=== PATIENT | female | born 1970 | race Caucasian/White ===

== ENCOUNTER → 2017-04-15 | Outpatient (CLI) | payer OTHER, SELFPAY ==
--- NOTE | 2017-04-17 09:50 | DEXA ---
AP SPINE L1 - L4 1.011 -1.5 -1.4 LT FEMUR TOTAL 0.910 -0.8 -0.5 RT FEMUR TOTAL 0.906 -0.8 -0.5 TOTAL BODY TOTAL OTHER DUAL FEMUR FRAX* ASSESSMENT Risk factors: Not done. 10 year probability of fracture Major osteoporotic fracture % Hip fracture % COMMENTS: There is low bone density of the spine and hips. The decreased density of the spine does represent a significant change. The decreased density of the left hip does represent a significant change. The decreased density of the right hip does represent a significant change. The density of the spine has decreased 5.0% since the initial exam on 2005. The spine density has decreased 7.2% since the most recent exam on 12/03/2010. The density of the left hip has decreased 18.0% since the initial exam on 2005. The density of the left hip has decreased 13.9% since the most recent exam on . The density of the right hip has decreased 16.8% since the initial exam on 04/30. The density of the right hip has decreased 8.8% since the most recent exam on . FOLLOW-UP: Recommendation for the next bone density exam: 2 years. YINA
== END ==
LOC: M WHC 15:07
PROVIDERS: ATTEND Obstetrics & Gynecology
DX: E89.40 Asymptomatic postprocedural ovarian failure (principal); M85.89 Other specified disorders of bone density and structure, multiple sites

== ENCOUNTER → 2019-04-01 | Outpatient (REF) | payer BC ==
[2019-04-01 17:53] LABS: IRON (FE) 34 UG/DL (50-170)
[2019-04-01 18:05] LABS: VITAMIN B12 LEVEL 409 PG/ML (247-911)
== END ==
LOC: M LAB REF 17:17
PROVIDERS: ATTEND Nurse Practitioner Adult Health
DX: Z98.84 Bariatric surgery status (principal); D64.9 Anemia, unspecified

== ENCOUNTER → 2020-04-04 | Outpatient (REF) | payer BC ==
[2020-05-19 17:38] LABS: IRON (FE) 35 UG/DL (50-170); VITAMIN B12 LEVEL 317 PG/ML (247-911)
== END ==
LOC: M LAB REF 09:43
PROVIDERS: ATTEND Nurse Practitioner Adult Health
DX: D50.9 Iron deficiency anemia, unspecified (principal)

== ENCOUNTER → 2020-07-19 | Outpatient (CLI) | payer BC ==
[~2020-07-19] MED LIST: MULTCAP PO; OMEP10CA78 PO
[2020-07-19 16:41] LABS: HEMATOCRIT 36.1 % (36.0-47.0); HEMOGLOBIN 11.6 g/dl (12.0-15.5); MEAN CORPUSCULAR HEMOGLOBIN 26.3 pg (27.0-33.0); MEAN CORPUSCULAR HGB CONC 32.1 g/dl (32.0-36.5); MEAN CORPUSCULAR VOLUME 81.9 fl (80.0-96.0); PLATELET COUNT, AUTOMATED 202 10^3/uL (150-450); RED BLOOD COUNT 4.41 10^6/uL (4.00-5.40)
[2020-07-19 17:28] LABS: PERCENT SATURATION 14.4 % (13.2-45.0)
== END ==
LOC: M LAB 16:06
PROVIDERS: ATTEND Physician Assistant Medical
DX: D64.9 Anemia, unspecified (principal)

== ENCOUNTER → 2020-07-29 | Outpatient (CLI) | payer BC | LOC: M LABSMTC 09:23 | PROVIDERS: ATTEND Anesthesiology | DX: Z01.812 Encounter for preprocedural laboratory examination (principal); Z20.828 Contact with and (suspected) exposure to other viral communicable diseases ==

== ENCOUNTER 2020-08-03 10:58 | Day surgery (SDC) | payer BC ==
[~2020-08-03] VITALS: Ht 160 cm; Wt 83.0 kg
[~2020-08-03 10:58] MED LIST changes: +NS 1,000 ML IV ONE
[2020-08-03] MEDS ORDERED: LIDOCAINE 2% 100MG/5ML SDV (FOR ANES.) As Ordered ONE (12:42)
[2020-08-03] MEDS ORDERED: fentaNYL 100 MCG/2 ML INJECTION (J3010) As Ordered ONE (12:42)
[2020-08-03] MEDS ORDERED: propofoL 500 MG/50 ML VIAL As Ordered ONE (12:42)
[2020-08-03] MEDS ORDERED: propofoL 200 MG/20 ML VIAL As Ordered ONE ×2 (13:04→13:33)
--- NOTE | 2020-08-03 13:51 | ROOR ---
Patient Name: Rosa Burris Procedure Date: 08/03/2020 12:36 PM Date of : 1970 Age: 50 Room: [facility] Gender: Female Note Status: Finalized Procedure: Upper GI endoscopy Indications: Heartburn Providers: Dexter Buckner MD Referring MD: Mia Aguilar NP Requesting Provider: Medicines: Monitored Anesthesia Care Complications: No immediate complications. Procedure: Pre-Anesthesia Assessment: - Prior to the procedure, a History and Physical was performed, and patient medications and allergies were reviewed. The patient is competent. The risks and benefits of the procedure and the sedation options and risks were discussed with the patient. All questions were answered and informed consent was obtained. Patient identification and proposed procedure were verified by the physician, the nurse and the anesthesiologist in the procedure room. Mental Status Examination: alert and oriented. Airway Examination: normal oropharyngeal airway and neck mobility. Respiratory Examination: clear to auscultation. CV Examination: normal. Prophylactic Antibiotics: The patient does not require prophylactic antibiotics. Prior Anticoagulants: The patient has taken no previous anticoagulant or antiplatelet agents. ASA Grade Assessment: II - A patient with mild systemic disease. After reviewing the risks and benefits, the patient was deemed in satisfactory condition to undergo the procedure. The anesthesia plan was to use monitored anesthesia care (MAC). Immediately prior to administration of medications, the patient was re-assessed for adequacy to receive sedatives. The heart rate, respiratory rate, oxygen saturations, blood pressure, adequacy of pulmonary ventilation, and response to care were monitored throughout the procedure. The physical status of the patient was re-assessed after the procedure. The Endoscope was introduced through the mouth, and advanced to the second part of duodenum. The upper GI endoscopy was accomplished without difficulty. The patient tolerated the procedure well. Findings: The Z-line was regular and was found 36 cm from the incisors. Evidence of a patent vertical banded gastroplasty was found. A gastric pouch 5 cm wide with a medium size was found. Evidence of a Silastic band was seen and appeared intact and tight. This was traversed. Scattered moderate inflammation characterized by erythema, friability and granularity was found in the gastric antrum. Biopsies were taken with a cold forceps for Helicobacter pylori testing. Verification of patient identification for the specimen was done by the physician and nurse using the patient's name, date and medical record number. The duodenal bulb and second portion of the duodenum were normal. Impression: - Z-line regular, 36 cm from the incisors. - Patent vertical banded gastroplasty with a medium-sized pouch and band appears intact and tight. - Gastritis. Biopsied. - Normal duodenal bulb and second portion of the duodenum. Recommendation: - Patient has a contact number available for emergencies. The signs and symptoms of potential delayed complications were discussed with the patient. Return to normal activities tomorrow. Written discharge instructions were provided to the patient. - Post gastric bypass diet (small frequent meals and avoid fatty/ fried foods). - Continue present medications. - Follow an antireflux regimen. - Await pathology results. - Follow the recommendations as per the other procedure note. - Return to GI clinic in 2 weeks. - Return to primary care physician. Procedure Code(s): --- Professional --- 32277, Esophagogastroduodenoscopy, flexible, transoral; with biopsy, single or multiple Diagnosis Code(s): --- Professional --- Z98.84, Bariatric surgery status K29.70, Gastritis, unspecified, without bleeding R12, Heartburn CPT copyright 2019 [employer]. All rights reserved. The codes documented in this report are preliminary and upon gauge machine operator review may be revised to meet current compliance requirements. Dexter Buckner MD Dexter Buckner MD 08/03/2020 1:51:08 PM Electronically signed by Dexter Buckner MD Number of Addenda: 0 Note Initiated On: 08/03/2020 12:36 PM Estimated Blood Loss: Estimated blood loss was minimal.
--- NOTE | 2020-08-03 14:08 | ROOR ---
Patient Name: Rosa Burris Procedure Date: 08/03/2020 12:37 PM Date of : 1970 Age: 50 Room: [facility] Gender: Female Note Status: Finalized Procedure: Colonoscopy Indications: Hematochezia Providers: Dexter Buckner MD Referring MD: Mia Aguilar NP Requesting Provider: Medicines: Monitored Anesthesia Care Complications: No immediate complications. Procedure: Pre-Anesthesia Assessment: - Prior to the procedure, a History and Physical was performed, and patient medications and allergies were reviewed. The patient is competent. The risks and benefits of the procedure and the sedation options and risks were discussed with the patient. All questions were answered and informed consent was obtained. Patient identification and proposed procedure were verified by the physician, the nurse and the anesthesiologist in the procedure room. Mental Status Examination: alert and oriented. Airway Examination: normal oropharyngeal airway and neck mobility. Respiratory Examination: clear to auscultation. CV Examination: normal. Prophylactic Antibiotics: The patient does not require prophylactic antibiotics. Prior Anticoagulants: The patient has taken no previous anticoagulant or antiplatelet agents. ASA Grade Assessment: II - A patient with mild systemic disease. After reviewing the risks and benefits, the patient was deemed in satisfactory condition to undergo the procedure. The anesthesia plan was to use monitored anesthesia care (MAC). Immediately prior to administration of medications, the patient was re-assessed for adequacy to receive sedatives. The heart rate, respiratory rate, oxygen saturations, blood pressure, adequacy of pulmonary ventilation, and response to care were monitored throughout the procedure. The physical status of the patient was re-assessed after the procedure. The Colonoscope was introduced through the anus and advanced to the terminal ileum, with identification of the appendiceal orifice and IC valve. The patient tolerated the procedure well. The colonoscopy was technically difficult and complex due to multiple diverticula in the colon, restricted mobility of the colon and a tortuous colon. Successful completion of the procedure was aided by withdrawing the scope and replacing with the enteroscope. The quality of the bowel preparation was good. The terminal ileum, ileocecal valve, appendiceal orifice, and rectum were photographed. Scope insertion time was 5 minutes. Scope withdrawal time was 20 minutes. The total duration of the procedure was 30 minutes. Findings: The perianal and digital rectal examinations were normal. The terminal ileum appeared normal. A 5 mm polyp was found in the transverse colon. The polyp was sessile. The polyp was removed with a hot snare. Resection and retrieval were complete. Verification of patient identification for the specimen was done by the physician and nurse using the patient's name, date and medical record number. Estimated blood loss was minimal. A 30 mm polyp was found in the sigmoid colon. The polyp was sessile. Polyp resection was incomplete due to polyp size (too large to be completely excised), the polypectomy being technically difficult and complex and poor endoscopic visualization. Biopsies were taken with a cold forceps for histology. Area was tattooed with an injection of Debbie ink. The sigmoid colon revealed significantly excessive looping. Non-bleeding external and internal hemorrhoids were found during retroflexion. The hemorrhoids were medium-sized. Impression: - The examined portion of the ileum was normal. - One 5 mm polyp in the transverse colon, removed with a hot snare. Resected and retrieved. - One 30 mm polyp in the sigmoid colon. Biopsied. Tattooed. - There was significant looping of the colon. - Non-bleeding external and internal hemorrhoids. Recommendation: - Patient has a contact number available for emergencies. The signs and symptoms of potential delayed complications were discussed with the patient. Return to normal activities tomorrow. Written discharge instructions were provided to the patient. - High fiber diet. - Continue present medications. - Await pathology results. - Repeat colonoscopy within 3 months for surveillance based on pathology results. - Return to GI clinic 1 - 2 weeks. Please call GI clinic @ [phone] for apppointment date and time. - Return to primary care physician. Procedure Code(s): --- Professional --- 71069, Colonoscopy, flexible; with removal of tumor(s), polyp(s), or other lesion(s) by snare technique 75547, Colonoscopy, flexible; with directed submucosal injection(s), any substance 16373, 59, Colonoscopy, flexible; with biopsy, single or multiple Diagnosis Code(s): --- Professional --- K64.8, Other hemorrhoids K63.5, Polyp of colon K92.1, Melena (includes Hematochezia) CPT copyright 2019 [employer]. All rights reserved. The codes documented in this report are preliminary and upon insights strategist review may be revised to meet current compliance requirements. Dexter Buckner MD Dexter Buckner MD 08/03/2020 2:07:41 PM Electronically signed by Dexter Buckner MD Number of Addenda: 0 Note Initiated On: 08/03/2020 12:37 PM Estimated Blood Loss: Estimated blood loss was minimal.
[2020-08-03 14:15] VITALS: BP 113/86
== END 2020-08-03 14:58 | disposition home or self-care (01) ==
LOC: M OPP 10:58
PROVIDERS: ATTEND Internal Medicine Gastroenterology
DX: D12.6 Benign neoplasm of colon, unspecified (principal); K64.8 Other hemorrhoids; K92.1 Melena; Z98.84 Bariatric surgery status; K29.70 Gastritis, unspecified, without bleeding; R12 Heartburn; Z83.71 Family history of colonic polyps
CPT/HCPCS: 43239; 45380; 45381; 45385; 88305; J3010

== ENCOUNTER → 2020-11-11 | Outpatient (CLI) | payer BC ==
[~2020-11-11] MED LIST changes: -NS 1,000 ML IV ONE; +VITA500C24 PO; +VITMTA PO
== END ==
LOC: M LABSMTC 08:13
PROVIDERS: ATTEND Anesthesiology
DX: Z01.812 Encounter for preprocedural laboratory examination (principal); Z20.822 Contact with and (suspected) exposure to COVID-19

== ENCOUNTER 2020-11-16 07:27 | Day surgery (SDC) | payer BC ==
[~2020-11-16] VITALS: Ht 160 cm; Wt 82.7 kg
[~2020-11-16 07:27] MED LIST changes: +NS 1,000 ML IV ONE
[2020-11-16] MEDS ORDERED: propofoL 500 MG/50 ML VIAL As Ordered ONE ×2 (09:19→09:49)
[2020-11-16] MEDS ORDERED: LIDOCAINE 2% 100MG/5ML SDV (FOR ANES.) As Ordered ONE (09:19)
[2020-11-16] MEDS ORDERED: ELEVIEW SUBMUCOSAL INJ 10ML AMP As Ordered ONE (09:21)
--- NOTE | 2020-11-16 10:37 | ROOR ---
Patient Name: Rosa Burris Procedure Date: 11/16/2020 8:59 AM Date of : 1970 Age: 50 Room: [facility] Gender: Female Note Status: Finalized Procedure: Colonoscopy Indications: Therapeutic procedure, Therapeutic procedure for known colon adenoma Providers: Dexter Buckner MD Referring MD: Mia Aguilar NP Requesting Provider: Medicines: Monitored Anesthesia Care Complications: No immediate complications. Procedure: Pre-Anesthesia Assessment: - Prior to the procedure, a History and Physical was performed, and patient medications and allergies were reviewed. The patient is competent. The risks and benefits of the procedure and the sedation options and risks were discussed with the patient. All questions were answered and informed consent was obtained. Patient identification and proposed procedure were verified by the physician, the nurse and the anesthesiologist in the procedure room. Mental Status Examination: normal. Airway Examination: normal oropharyngeal airway and neck mobility. Respiratory Examination: clear to auscultation. CV Examination: normal. Prophylactic Antibiotics: The patient does not require prophylactic antibiotics. Prior Anticoagulants: The patient has taken no previous anticoagulant or antiplatelet agents. ASA Grade Assessment: II - A patient with mild systemic disease. After reviewing the risks and benefits, the patient was deemed in satisfactory condition to undergo the procedure. The anesthesia plan was to use monitored anesthesia care (MAC). Immediately prior to administration of medications, the patient was re-assessed for adequacy to receive sedatives. The heart rate, respiratory rate, oxygen saturations, blood pressure, adequacy of pulmonary ventilation, and response to care were monitored throughout the procedure. The physical status of the patient was re-assessed after the procedure. The Colonoscope was introduced through the anus and advanced to the terminal ileum, with identification of the appendiceal orifice and IC valve. The Colonoscope was introduced through the anus and advanced to the cecum, identified by appendiceal orifice and ileocecal valve. The colonoscopy was performed without difficulty. The patient tolerated the procedure well. The quality of the bowel preparation was good. The terminal ileum, ileocecal valve, appendiceal orifice, and rectum were photographed. Scope insertion time was 3 minutes. Scope withdrawal time was 9 minutes. The total duration of the procedure was 12 minutes. The Colonoscope was introduced through the anus and advanced to the sigmoid colon to examine a polypectomy site. This was the intended extent. Findings: The perianal and digital rectal examinations were normal. The terminal ileum appeared normal. A 30 mm polyp was found in the sigmoid colon. The polyp was sessile. The polyp was removed with a hot snare, rotatable snare, lift with eleview. Polyp resection was incomplete. The resected tissue was retrieved. Verification of patient identification for the specimen was done by the physician and nurse using the patient's name, date and medical record number. Estimated blood loss was minimal. A few small-mouthed diverticula were found in the sigmoid colon. Non-bleeding external and internal hemorrhoids were found during retroflexion. The hemorrhoids were medium-sized. Impression: - The examined portion of the ileum was normal. - One 30 mm polyp in the sigmoid colon. Incomplete resection. Resected tissue retrieved. - Diverticulosis in the sigmoid colon. - Non-bleeding external and internal hemorrhoids. Recommendation: - Patient has a contact number available for emergencies. The signs and symptoms of potential delayed complications were discussed with the patient. Return to normal activities tomorrow. Written discharge instructions were provided to the patient. - Clear liquid diet today, then advance as tolerated to high fiber diet. - Continue present medications. - Await pathology results. - Based on the pathology results review, to consider either repeat colonoscopy with advanced endoscopy or segemental colectomy with colo- rectal surgery. - Return to GI clinic 1 - 2 weeks. Please call GI clinic @ [phone] for apppointment date and time. - Return to primary care physician. Procedure Code(s): --- Professional --- 15164, Colonoscopy, flexible; with removal of tumor(s), polyp(s), or other lesion(s) by snare technique Diagnosis Code(s): --- Professional --- K64.8, Other hemorrhoids K63.5, Polyp of colon D12.6, Benign neoplasm of colon, unspecified K57.30, Diverticulosis of large intestine without perforation or abscess without bleeding CPT copyright 2019 [employer]. All rights reserved. The codes documented in this report are preliminary and upon nurse transplant review may be revised to meet current compliance requirements. Dexter Buckner MD Dexter Buckner MD 11/16/2020 10:37:31 AM Electronically signed by Dexter Buckner MD Number of Addenda: 0 Note Initiated On: 11/16/2020 8:59 AM Estimated Blood Loss: Estimated blood loss was minimal.
[2020-11-16 10:55] VITALS: BP 130/88
== END 2020-11-16 11:15 | disposition home or self-care (01) ==
LOC: M OPP 07:27
PROVIDERS: ATTEND Internal Medicine Gastroenterology
DX: D12.6 Benign neoplasm of colon, unspecified (principal); Z80.0 Family history of malignant neoplasm of digestive organs; K57.30 Diverticulosis of large intestine without perforation or abscess without bleeding; K64.8 Other hemorrhoids; Z86.010 Personal history of colon polyps; Z83.71 Family history of colonic polyps

== ENCOUNTER → 2020-12-12 | Outpatient (CLI) | payer BC ==
[~2020-12-12] MED LIST changes: -NS 1,000 ML IV ONE
== END ==
LOC: M LABSMTC 09:50
PROVIDERS: ATTEND Internal Medicine
DX: Z01.812 Encounter for preprocedural laboratory examination (principal); Z20.822 Contact with and (suspected) exposure to COVID-19

== ENCOUNTER → 2021-03-21 | Outpatient (CLI) | payer BC | LOC: M LABSMTC 10:39 | PROVIDERS: ATTEND Anesthesiology | DX: Z01.812 Encounter for preprocedural laboratory examination (principal); Z20.822 Contact with and (suspected) exposure to COVID-19 ==

== ENCOUNTER 2021-03-26 06:35 | Day surgery (SDC) | payer BC ==
[~2021-03-26] VITALS: Ht 160 cm; Wt 81.2 kg
[~2021-03-26 06:35] MED LIST changes: +NS 1,000 ML IV ONE
[2021-03-26] MEDS ORDERED: LIDOCAINE 2% 100MG/5ML SDV (FOR ANES.) As Ordered ONE (06:58)
[2021-03-26] MEDS ORDERED: propofoL 200 MG/20 ML VIAL As Ordered ONE (06:58)
[2021-03-26] MEDS ORDERED: propofoL 500 MG/50 ML VIAL As Ordered ONE (07:47)
--- NOTE | 2021-03-26 08:32 | ROOR ---
Patient Name: Rosa Burris Procedure Date: 03/26/2021 7:29 AM Date of : 1970 Age: 50 Room: [facility] Gender: Female Note Status: Finalized Procedure: Flexible Sigmoidoscopy Indications: For therapy of adenomatous polyps in the colon Providers: Dexter Buckner MD Referring MD: Mia Aguilar NP Requesting Provider: Medicines: Monitored Anesthesia Care Complications: No immediate complications. Procedure: Pre-Anesthesia Assessment: - Prior to the procedure, a History and Physical was performed, and patient medications and allergies were reviewed. The patient is competent. The risks and benefits of the procedure and the sedation options and risks were discussed with the patient. All questions were answered and informed consent was obtained. Patient identification and proposed procedure were verified by the physician, the nurse and the anesthesiologist in the procedure room. Mental Status Examination: alert and oriented. Airway Examination: normal oropharyngeal airway and neck mobility. Respiratory Examination: clear to auscultation. CV Examination: normal. Prophylactic Antibiotics: The patient does not require prophylactic antibiotics. Prior Anticoagulants: The patient has taken no previous anticoagulant or antiplatelet agents. ASA Grade Assessment: II - A patient with mild systemic disease. After reviewing the risks and benefits, the patient was deemed in satisfactory condition to undergo the procedure. The anesthesia plan was to use monitored anesthesia care (MAC). Immediately prior to administration of medications, the patient was re-assessed for adequacy to receive sedatives. The heart rate, respiratory rate, oxygen saturations, blood pressure, adequacy of pulmonary ventilation, and response to care were monitored throughout the procedure. The physical status of the patient was re-assessed after the procedure. The Colonoscope was introduced through the anus and advanced to the left transverse colon. The flexible sigmoidoscopy was accomplished without difficulty. The patient tolerated the procedure well. Scope insertion time was 2 minutes. Scope withdrawal time was 6 minutes. The total duration of the procedure was 20 minutes. The Duodenoscope was introduced through the anus and advanced to the sigmoid colon. Findings: The perianal and digital rectal examinations were normal. A 20 mm polyp was found in the sigmoid colon. The polyp was sessile. The polyp was removed with a hot snare. Resection and retrieval were complete. A tattoo was seen in the rectum and in the sigmoid colon. The tattoo site appeared normal. Non-bleeding external and internal hemorrhoids were found during retroflexion. The hemorrhoids were medium-sized. Impression: - One 20 mm polyp in the sigmoid colon, removed with a hot snare. Resected and retrieved. - A tattoo was seen in the rectum and in the sigmoid colon. The tattoo site appeared normal. - Non-bleeding external and internal hemorrhoids. Recommendation: - The patient will be observed post-procedure, until all discharge criteria are met. - Patient has a contact number available for emergencies. The signs and symptoms of potential delayed complications were discussed with the patient. Return to normal activities tomorrow. Written discharge instructions were provided to the patient. - Clear liquid diet for 1 day, then advance as tolerated to high fiber diet. - Await pathology results. - Perform a colonoscopy in 3 years for surveillance based on the pathology results. - Telephone GI clinic for pathology results in 2 weeks. - Return to primary care physician. Procedure Code(s): --- Professional --- 70950, Sigmoidoscopy, flexible; with removal of tumor(s), polyp(s), or other lesion(s) by snare technique Diagnosis Code(s): --- Professional --- K63.5, Polyp of colon K64.8, Other hemorrhoids D12.6, Benign neoplasm of colon, unspecified CPT copyright 2019 [employer]. All rights reserved. The codes documented in this report are preliminary and upon recreation facility manager review may be revised to meet current compliance requirements. Dexter Buckner MD Dexter Buckner MD 03/26/2021 8:32:27 AM Electronically signed by Dexter Buckner MD Number of Addenda: 0 Note Initiated On: 03/26/2021 7:29 AM Estimated Blood Loss: Estimated blood loss was minimal.
[2021-03-26 08:45] VITALS: BP 140/79
== END 2021-03-26 08:53 | disposition home or self-care (01) ==
LOC: M OPP 06:35
PROVIDERS: ATTEND Internal Medicine Gastroenterology
DX: D12.5 Benign neoplasm of sigmoid colon (principal); K64.8 Other hemorrhoids; K21.9 Gastro-esophageal reflux disease without esophagitis

== ENCOUNTER → 2021-04-12 | Outpatient (REF) | payer BC ==
[~2021-04-12] MED LIST changes: -NS 1,000 ML IV ONE
[2021-04-12 18:38] LABS: PERCENT SATURATION 20.6 % (13.2-45.0)
== END ==
LOC: M LAB REF 16:48
PROVIDERS: ATTEND Nurse Practitioner Adult Health
DX: D50.9 Iron deficiency anemia, unspecified (principal)

== ENCOUNTER → 2023-01-29 | Outpatient (CLI) | payer BC ==
[~2023-01-29] MED LIST changes: -OMEP10CA78 PO; +OMEP1CAP71 PO
== END ==
LOC: M WHC 09:55
PROVIDERS: ATTEND Nurse Practitioner Adult Health
DX: Z13.820 Encounter for screening for osteoporosis (principal); M85.89 Other specified disorders of bone density and structure, multiple sites

== ENCOUNTER → 2023-10-08 | Outpatient (REF) | payer BC ==
[2023-10-08 14:06] LABS: FERRITIN 16.2 NG/ML (7.3-270.7)
[2023-10-08 14:08] LABS: PERCENT SATURATION 14.3 % (13.2-45.0)
== END ==
LOC: M LAB REF 12:17
PROVIDERS: ATTEND Nurse Practitioner Family
DX: Z98.84 Bariatric surgery status (principal); D64.9 Anemia, unspecified

== ENCOUNTER 2024-01-12 11:32 | Day surgery (SDC) | payer BC ==
[~2024-01-12] VITALS: Ht 160 cm; Wt 87.0 kg
[~2024-01-12 11:32] MED LIST changes: +FAMO20TA PO; +FERR325T3 PO; +OMEP-173 PO; +ONDA4TAB6 PO; +THERTAB52 PO; +VIAC1CHW PO; +VITA100017 PO
[2024-01-12] MEDS: NS 1,000 ML IV ONE (12:08)
[2024-01-12 13:46] VITALS: TEMP 98.3
[2024-01-12 14:10] VITALS: BP 113/58; O2SAT 100
== END 2024-01-12 14:21 | disposition home or self-care (01) ==
LOC: M OPP 11:32
PROVIDERS: ATTEND Internal Medicine Gastroenterology
DX: Z12.11 Encounter for screening for malignant neoplasm of colon (principal); D12.2 Benign neoplasm of ascending colon; K57.30 Diverticulosis of large intestine without perforation or abscess without bleeding; K64.8 Other hemorrhoids; K64.4 Residual hemorrhoidal skin tags; Z86.010 Personal history of colon polyps; K21.00 Gastro-esophageal reflux disease with esophagitis, without bleeding; K29.70 Gastritis, unspecified, without bleeding; K95.09 Other complications of gastric band procedure; Y83.8 Other surgical procedures as the cause of abnormal reaction of the patient, or of later complication, without mention of misadventure at the time of the procedure; Z90.49 Acquired absence of other specified parts of digestive tract; Z90.711 Acquired absence of uterus with remaining cervical stump; Z79.899 Other long term (current) drug therapy; Z98.51 Tubal ligation status

== ENCOUNTER 2024-06-09 05:58 | Day surgery (SDC) | payer BC ==
[~2024-06-09] VITALS: Ht 160 cm; Wt 79.7 kg
[~2024-06-09 05:58] MED LIST changes: +ONDA-282 PO; -ONDA4TAB6 PO
[2024-06-09] MEDS ORDERED: LR 1,000 ML IV SCH ×2 (06:20→09:20)
[2024-06-09] MEDS ORDERED: MIDAZOLAM INJ 2MG/2ML VIAL As Ordered ONE (07:02)
[2024-06-09] MEDS ORDERED: ROCURONIUM BROMIDE 50MG/5ML VIAL As Ordered ONE (07:03)
[2024-06-09] MEDS ORDERED: LIDOCAINE 2% 100MG/5ML SDV (FOR ANES.) As Ordered ONE (07:03)
[2024-06-09] MEDS ORDERED: propofoL 200 MG/20 ML VIAL As Ordered ONE (07:03)
[2024-06-09] MEDS ORDERED: ONDANSETRON 4MG 2ML VIAL As Ordered ONE (07:04)
[2024-06-09] MEDS ORDERED: fentaNYL 100 MCG/2 ML INJECTION As Ordered ONE (07:04)
[2024-06-09] MEDS ORDERED: ACETAMINOPHEN 1000MG 100ML IV BAG As Ordered ONE (07:05)
[2024-06-09] MEDS ORDERED: propofoL 500 MG/50 ML VIAL As Ordered ONE (07:07)
[2024-06-09] MEDS ORDERED: SUGAMMADEX SODIUM 500 MG/5 ML VIAL (BRIDION) As Ordered ONE (07:15)
[2024-06-09] MEDS: ceFAZolin SOD 2 GM in IV 1 EA IV ONE (07:40)
[2024-06-09] MEDS: HEPARIN SOD (PORCINE) 5000UNITS/ML 1ML VIAL/SYRINGE SQ ONE (07:41)
[2024-06-09] MEDS ORDERED: GLYCOPYRROLATE INJ 0.2 MG/ML 2 ML VIAL As Ordered ONE (07:56)
[2024-06-09] MEDS ORDERED: oxyCODONE 5MG TAB PO PRN (09:20)
[2024-06-09] MEDS ORDERED: ONDANSETRON 4MG 2ML VIAL IV PRN (09:20)
[2024-06-09] MEDS ORDERED: HYDROMORPHONE HCL 0.5 MG/ 0.5 ML SYRINGE IV PRN (09:20)
[2024-06-09] MEDS ORDERED: fentaNYL 100 MCG/2 ML INJECTION IV PRN (09:20)
[2024-06-09 10:50] VITALS: BP 126/75; TEMP 97.8; O2SAT 100
== END 2024-06-09 11:04 | disposition home or self-care (01) ==
LOC: M SDC 05:58
PROVIDERS: ATTEND Surgery
DX: K95.09 Other complications of gastric band procedure (principal); R13.19 Other dysphagia; K21.9 Gastro-esophageal reflux disease without esophagitis; G43.909 Migraine, unspecified, not intractable, without status migrainosus; Z86.16 Personal history of COVID-19; K59.00 Constipation, unspecified
CPT/HCPCS: 43774; 88300; C9290; J0131; J0665; J0690; J1100; J1596; J2250; J2405; J3010; S2900

== ENCOUNTER → 2024-11-11 | Outpatient (REF) | payer BC ==
[2024-11-11 13:23] LABS: RSV AMPLIFICATION NEGATIVE (NEGATIVE)
== END ==
LOC: M LAB REF 12:13
PROVIDERS: ATTEND Nurse Practitioner Family
DX: R05.9 Cough, unspecified (principal); R53.83 Other fatigue

== ENCOUNTER → 2024-11-11 | Outpatient (REF) | payer BC ==
[2024-11-11 16:04] LABS: PHOSPHORUS LEVEL 3.9 MG/DL (2.5-4.9)
[2024-11-11 16:05] LABS: PERCENT SATURATION 6.2 % (13.2-45.0)
[2024-11-11 16:06] LABS: FERRITIN 5.3 NG/ML (7.3-270.7); FOLATE 11.3 NG/ML (>5.4)
== END ==
LOC: M LAB REF 12:19
PROVIDERS: ATTEND Nurse Practitioner Family
DX: Z79.84 Long term (current) use of oral hypoglycemic drugs (principal)

== ENCOUNTER → 2025-03-21 | Outpatient (CLI) | payer BC | LOC: M WHC 14:08 | PROVIDERS: ATTEND Internal Medicine | DX: Z13.820 Encounter for screening for osteoporosis (principal); M85.88 Other specified disorders of bone density and structure, other site; M85.851 Other specified disorders of bone density and structure, right thigh; M85.852 Other specified disorders of bone density and structure, left thigh ==